=== PATIENT | male | born 1950 | race Caucasian/White ===

== ENCOUNTER 2024-11-08 16:48 | Emergency (ER) | payer OTHER, MEDICARE ==
[~2024-11-08] VITALS: Ht 177.8 cm; Wt 94.8 kg
[2024-11-08] MEDS: LIDOCAINE 4% ADH..PATCH TP ONE (17:27)
[2024-11-08] MEDS: ketOROlac 15MG/ML VIAL (15MG/ML) IM ONE (17:27)
--- NOTE | 2024-11-08 18:09 | HMCIMG ---
CT HEAD/BRAIN W/O CONTRAST CLINICAL HISTORY: trauma COMPARISON: None TECHNIQUE: Multiple sequential axial images of the head were obtained from the base of the skull through vertex. CT was performed with one or more of the following dose reduction techniques: automated exposure control, adjustment of the mA and/or kV according to patient size, or use of iterative reconstruction technique FINDINGS: There is moderate atrophy and mild small vessel disease. The orbital contents, paranasal sinuses and mastoid air cells are within normal limits. The calvarium is intact. IMPRESSION: There are no acute findings.
--- NOTE | 2024-11-08 18:14 | HMCIMG ---
CT CERVICAL SPINE W/O CONTRAST CLINICAL HISTORY: trauma COMPARISON: None TECHNIQUE: Sequential axial images of cervical spine without contrast and with sagittal and coronal reconstructions. CT was performed with one or more of the following dose reduction techniques: automated exposure control, adjustment of the mA and/or kV according to patient size, or use of iterative reconstruction technique FINDINGS: There is normal alignment of cervical vertebrae. There is no vertebral body height loss or fractures. The prevertebral soft tissue is unremarkable. The dens and periodontic space are within normal limits.There is mild bony osteophyte production and disc space loss at C2-3 through C4-5. IMPRESSION: Degenerative change with no acute trauma.
--- NOTE | 2024-11-08 18:18 | HMCIMG ---
CT CHEST/ABD/PELV W/O CONTRAST CLINICAL HISTORY: trauma COMPARISON: None TECHNIQUE: Multiple sequential axial images of the chest abdomen and pelvis were obtained from the thoracic inlet through the pubic symphysis. CT was performed with one or more of the following dose reduction techniques: automated exposure control, adjustment of the mA and/or kV according to patient size, or use of iterative reconstruction technique FINDINGS: There is minimal dependent atelectasis in the lung bases. Note is made of advanced calcified coronary artery disease. The mediastinum is free of pathologic size lymph nodes. The lung parenchyma is free of nodules and masses hematomas and there is no identified pneumothorax. The liver and spleen are unremarkable. The gallbladder pancreas and adrenal glands are within normal limits. The kidneys and bladder are unremarkable. There is no identified bowel obstruction. There is a large amount of fecal material in the colon. There is no identified free air or free fluid. There is no bulky abdominal or retroperitoneal lymphadenopathy. The aorta demonstrates calcified atherosclerotic vascular disease and there is also calcified atherosclerotic vascular disease of the iliac arteries with no identified aneurysmal dilatation or dissection flaps. The prostate gland is unremarkable. The bony structures demonstrate marked diffuse degenerative changes of the spine. There is no identified bony trauma. IMPRESSION: Constipation. Advanced calcified coronary disease. There is no identified acute trauma.
[2024-11-08] MEDS ORDERED: POLY510P31 PO (18:40)
[2024-11-08] MEDS ORDERED: MELO-108 PO (18:40)
[2024-11-08] MEDS ORDERED: LIDOP TP (18:40)
[2024-11-08] MEDS ORDERED: HYDR-4060 PO (18:40)
--- NOTE | 2024-11-08 18:44 | ERN ---
General Chief Complaint: Mechanical Fall Stated Complaint: FALL Time Seen by MD: 16:57 History of Present Illness Initial Comments 74-year-old male who presents for a fall. About 48 hours ago he fell from 2 ft onto his back. He was right flank pain and right lower back pain. He was ambulatory. He feels pain with deep respirations. He did not hit his head or lose consciousness. He has been in his normal state of health since, no vomiting confusion or neurologic deficits. He reports that he has had increasing pain to the right flank area. No bruising. No vomiting or systemic illness. Allergies: Coded Allergies: No Known Drug Allergies (Unverified Allergy, Unknown, 11/08/24) Past Medical History Past Medical History: Diabetes-Type II Past Surgical History: Other ROS Dictation CONSTITUTIONAL: No chills, no fever, no weakness, no diaphoresis, no malaise. HEAD/FACE: No signs of trauma. EENT: No eye pain, no blurred vision, no tearing, no double vision, no ear pain, no ear discharge, no nose pain, no nasal congestion, no throat pain, no throat swelling, no mouth pain. RESPIRATORY: No cough, no orthopnea, no SOB, no stridor, no wheezing. CARDIOVASCULAR: No chest pain, no edema, no palpitations, no syncope. GASTROINTESTINAL/ABDOMINAL: No abdominal pain, no constipation, no diarrhea, no nausea, no vomiting. GENITOURINARY: No abnormal discharge, no dysuria, no frequent urination, no hematuria. No complaints of pain in the genitals. MUSCULOSKELETAL: Right flank pain INTEGUMENTARY: No change in color, no change in hair/nails, no dryness, no lesion, no lumps, no rash. NEUROLOGICAL/PSYCH: No anxiety, not depressed, no emotional problem, no headache, no numbness, no pre-existing deficit, no history of seizures, no tremors, no weakness. HEMATOLOGIC/LYMPHATIC: Not anemic, no history of blood clots, no apparent bleeding, no bruising, glands not swollen. All Systems Negative, Except as Noted. Physical Exam Physical Exam Dictation VITAL SIGNS: Reviewed. GENERAL APPEARANCE: Alert, oriented x3, no acute distress HEAD AND FACE: Non-traumatic. EYES: PERRL, pink conjunctivas, eyelid no trauma, anterior chamber clear. EARS: Pinnas intact and no signs of trauma or erythema. Ear canals clear and no discharge. TMs no erythema. NOSE: No discharge, no bleeding. OROPHARYNX: Mouth normal, teeth no caries, tongue pink. Pharynx clear, no erythema. Tonsils no exudates, no abscesses noted. Mucous membrane moist. NECK: Supple, non-tender, no thyromegaly, no masses, no JVD, no bruits. BREAST: Deferred. CHEST: No tenderness, no crepitus, no paradoxical movement, no retractions. LUNGS: Clear, well-ventilated, symmetric, no rales, no wheezing, no rhonchi, no stridor, good breath sounds bilaterally. HEART: Regular rate, regular rhythm, no murmur, no gallops. VASCULAR: No peripheral edema. ABDOMEN: Soft, positive bowel sounds, nondistended, no guarding, nontender, no rebound, no masses no hepatomegaly, no splenomegaly, no Harvey's sign, no hernias. RECTAL: Deferred. GENITAL: Deferred. NEUROLOGICAL: Normal speech, gross motor function intact, gross sensory function intact. MUSCULOSKELETAL: Tenderness of the right flank no obvious bruising clear lungs EXTREMITIES: Nontender, full range of motion. SKIN: Color pink, dry, no turgor, no rash, no lacerations, no abrasions, no contusions. LYMPHATICS: Deferred. MDM CC: Right flank and right lower back pain after a fall about 48 hours ago Historian: Patient Comorbidities: Diabetes type 2, advanced age Limitations by social determinants of health: None Differential diagnosis: Multisystem trauma, rib fracture, pneumothorax, liver laceration, abdominal pathology, other. Vital signs: Stable, remained stable here in the ER. CT of the chest, abdomen, pelvis without contrast (independently interpreted by me ): small right posterior nondisplaced fracture in the lower ribs consistent with a presentation. No pneumothorax underlying. No free air. No other obvious major abnormalities. CT head ( independently interpreted by me): No acute bleeding or abnormalities CT cervical spine ( independently interpreted by me ): No acute abnormalities Treatment in ED: Lidocaine patch, Toradol injection Reassessment: Patient was improvement of symptoms. Patient's pain is controlled. He was nontoxic in appearance. We will treat with [id number] pain medicines, prescription for [place]. Of note, when I was discharging the patient he did mentioned that he has been constipated for a few days and requested a prescription for PEG. We will give a prescription. ED Course Orders Procedure Category Date Status Time Ct Chest/Abd/Pelv W/O CT 11/08/24 Resulted Contrast 17:00 Ct Head/Brain W/O CT 11/08/24 Resulted Contrast 17:00 Ct Cervical Spine W/O CT 11/08/24 Resulted Contrast 17:00 Ketorolac PHA 11/08/24 Complete Tromethamine 15mg/Ml 17:30 Lidocaine (Lidocaine PHA 11/08/24 Complete Patch 4%) 17:30 Current Medications Medications (Trade) Dose Ordered Sig/Michael Route PRN Reason Start Time Stop Time Status Last Admin Dose Admin Ketorolac Tromethamine (toRADol) 15 mg ONCE ONCE IM 11/08/24 17:30 11/08/24 17:32 DC 11/08/24 17:27 Lidocaine (Lidocaine Patch 4%) 1 each ONCE ONCE TP 11/08/24 17:30 11/08/24 17:32 DC 11/08/24 17:27 Vital Signs Date Time Temp Pulse Resp B/P (MAP) Pulse Ox O2 Delivery O2 Flow Rate FiO2 11/08/24 16:52 97.9 75 14 124/69 97 Room Air 0 DX & DISP Disposition: Discharge Departure Impression: Primary Impression: Fracture of rib of right side Additional Impression: Constipation Condition: Stable Scripts Polyethylene Glycol 3350 ([id number]) 17 Gram/Dose Powder 510 GM PO TID for constipation, #1 APPL Prov: THIERRY MEJIA DO 11/08/24 Lidocaine (Lidoderm Patch 5%) 5 % Patch 10 PATCH TP DAILY for 20 Days, #20 PATCH 0 Refills may wear up to 12 hours Prov: THIERRY MEJIA DO 11/08/24 Meloxicam (Meloxicam) 15 Mg Tablet 15 MG PO DAILY PRN for PAIN for 10 Days, #10 TAB Prov: THIERRY MEJIA DO 11/08/24 Hydrocodone/Acetaminophen (Hydrocodon-Acetaminophen 5-325) 5 Mg-325 Mg Tablet 1-2 TAB PO TIDP PRN for pain for 5 Days, #20 TAB 0 Refills Prov: THIERRY MEJIA DO 11/08/24 Additional Instructions: One nondisplaced rib fracture on the back right rib lower rib. This is likely causing your symptoms. Otherwise the CT scans of her chest abdomen and pelvis are unremarkable. I have prescribed Lidoderm patches. You can place one daily for pain. I recommend he take a daily meloxicam for pain. Do not mix this medication with the ibuprofen are naproxen. I have prescribed hydrocodone-acetaminophen tabs to use as needed for pain. You can take 1-2 tabs every 6-8 hours as needed for significant pain. As we discussed, you are at risk of developing a pneumonia or lung complications. Be sure to take plenty of deep breaths. I recommend some aerobic exercise well healing. Regarding your constipation. I have prescribed PEG. You can take this a few times a day in order to promote bowel movements. I also recommend a high-fiber diet. Drink plenty of liquids. Please return to the emergency department as needed. Referrals: SELF,REFERRAL (PCP) THIERRY MEJIA DO Nov 08, 2024 18:44
[2024-11-08 19:10] VITALS: BP 126/72; PULSE 70; RESP 18; TEMP 97.8; O2SAT 98
== END 2024-11-08 19:31 | disposition home or self-care (01) ==
LOC: EDH 16:48
DX: S22.31XA Fracture of one rib, right side, initial encounter for closed fracture (principal); E11.9 Type 2 diabetes mellitus without complications; K59.00 Constipation, unspecified; Z98.890 Other specified postprocedural states; X58.XXXA Exposure to other specified factors, initial encounter; Y93.89 Activity, other specified; Y92.89 Other specified places as the place of occurrence of the external cause; Y99.8 Other external cause status
CPT/HCPCS: 99285; 70450; 72125; 71250; 74176; 96372; J1885